=== PATIENT | female | born 1940 | race Caucasian/White ===

== ENCOUNTER 2016-09-29 07:33 | Day surgery (SDC) | payer MEDICARE ==
[2016-05-14 10:31] VITALS: BMI 30.4
[2016-09-29] MEDS ORDERED: Lactated Ringer's 500 ML IV ONE (08:04)
[2016-09-29] MEDS ORDERED: Propofol 10 mg/ml Inj (20 ML) ONE (09:24)
[2016-09-29 09:59] VITALS: TEMP 97
[2016-09-29 10:17] VITALS: BP 135/70; PULSE 57; RESP 10; O2SAT 99
== END 2016-09-29 10:20 | disposition home or self-care (01) ==
LOC: H.ENDO 07:33
PROVIDERS: ATTEND Internal Medicine Gastroenterology
DX: Z12.11 Encounter for screening for malignant neoplasm of colon (principal); I10 Essential (primary) hypertension; K57.30 Diverticulosis of large intestine without perforation or abscess without bleeding; K64.8 Other hemorrhoids; K27.7 Chronic peptic ulcer, site unspecified, without hemorrhage or perforation; K30 Functional dyspepsia; K44.9 Diaphragmatic hernia without obstruction or gangrene; K31.9 Disease of stomach and duodenum, unspecified
CPT/HCPCS: 43239; 88305; G0121; J2001; J2704; J7120

== ENCOUNTER 2017-03-18 10:41 | Emergency (ER) | payer MEDICARE, OTHER ==
[2017-03-18 10:50] VITALS: BMI 30.2
[2017-03-18 10:51] VITALS: TEMP 97.2
--- NOTE | 2017-03-18 12:28 | ED PDOC ---
HPI: General Adult Time Seen by Provider: 03/18/17 11:31 Chief Complaint (Nursing): Pain, Chronic History Per: Patient, Family (Mary Jo) Additional Complaint(s): Pt. states for the past 2 weeks she's had L sided temporal headache radiating to the R side associated with intermittent nausea. Headache is gradual in onset and atraumatic. Further states that headache is associated with nausea but no vomiting. Also reports that she's had epigastric abdominal pain associated with postprandial nausea that has been ongoing for 6 months. Pt. has been evaluated by her PMD for this abdominal pain and has had US done which was normal. Also reports having diffuse joint pain which she attributes to her arthritis which she's had intermittent for several years. Denies trauma, fever, chest pain, SOB , hemoptysis, vomiting, hematemesis, diarrhea, cough, congestion, numbness, weakness. Last BM was today and was normal. Past Medical History Reviewed: Historical Data, Nursing Documentation, Vital Signs Vital Signs: Last Vital Signs Temp 97.2 F L 03/18/17 10:50 Pulse 71 03/18/17 10:50 Resp 20 03/18/17 10:50 BP 175/86 H 03/18/17 10:50 Pulse Ox 98 03/18/17 12:30 - Medical History PMH: Arthritis, Back Problems, HTN - Surgical History Surgical History: Cholecystectomy (>15 years ago) - Family History Family History: States: No Known Family Hx - Immunization History Hx Tetanus Toxoid Vaccination: Yes Hx Influenza Vaccination: No Hx Pneumococcal Vaccination: Yes - Home Medications Home Medications: Ambulatory Orders Medication Instructions Recorded Diazepam [Valium] 2 mg PO TID #21 tab 01/31/15 Diovan Hct 12.5 mg-160 mg 1 tab PO DAILY 01/31/15 Prednisone 10 mg PO BID #10 tab 01/31/15 traMADol/Acetaminophen [Ultracet 1 tab PO Q8 PRN #20 tab 01/31/15 325 MG-37.5 MG] Acetaminophen [Tylenol] 325 mg PO Q6 PRN #30 tab 01/21/16 Naproxen [Naprosyn] 500 mg PO BID #20 tab 01/21/16 Nitrofurantoin Macrocrystals 1 cap PO BID #14 cap 10/08/16 [Macrobid] Prednisone [Deltasone] 40 mg PO DAILY #6 tablet 10/08/16 traMADol [Ultram] 50 mg PO TID #7 tab 10/08/16 Famotidine [Pepcid] 20 mg PO DAILY PRN #15 tab 03/18/17 Metoclopramide [Reglan] 10 mg PO Q8 PRN #15 tab 03/18/17 - Allergies Allergies/Adverse Reactions: Allergies Allergy/AdvReac Type Severity Reaction Status Date / Time No Known Allergies Allergy Verified 10/08/16 13:07 Review of Systems ROS Statement: Except As Marked, All Systems Reviewed And Found Negative Gastrointestinal: Positive for: Nausea, Abdominal Pain Neurological: Positive for: Headache Physical Exam - Physical Exam Appears: Positive for: Well, Non-toxic, No Acute Distress Head Exam: Positive for: ATRAUMATIC, NORMAL INSPECTION, NORMOCEPHALIC Skin: Positive for: Normal Color, Warm. Negative for: Rash Eye Exam: Positive for: EOMI, Normal appearance, PERRL ENT: Positive for: Normal ENT Inspection. Negative for: Pharyngeal Erythema, Tonsillar Exudate, Tonsillar Swelling Neck: Positive for: Normal, Painless ROM Cardiovascular/Chest: Positive for: Regular Rate, Rhythm Respiratory: Positive for: CNT, Normal Breath Sounds Gastrointestinal/Abdominal: Positive for: Normal Exam, Bowel Sounds, Soft. Negative for: Tenderness Back: Positive for: Normal Inspection Extremity: Positive for: Normal ROM Neurologic/Psych: Positive for: Alert - Laboratory Results Result Diagrams: 03/18/17 12:54 03/18/17 12:54 - ECG ECG: Positive for: Interpreted By Me ECG Rhythm: Negative for: ST/T Changes O2 Sat by Pulse Oximetry: 98 - Progress ED Course And Treament: Labs ordered. EKG ordered. Abd US ordered. CT head w/o contrast ordered. IV hydration, pepcid 20mg IV, reglan 10mg IV ordered. 1428 Abd US: Echogenic liver may be seen in setting of hepatic parenchymal disease or fatty infiltration. Mildly dilated common bile duct in the setting of cholecystectomy. CT head w/o contrast: Generalized atrophy. Nonspecific white matter changes. On re-evaluation, pt. in no distress. Reports good relief of abdominal pain and headache. States all symptoms have resolved. Abd US results d/w Dr. Britt and states no further imaging is needed since cholecystectomy is >15 years ago. Disposition - Clinical Impression Clinical Impression: Dyspepsia, Headache - Patient ED Disposition Is Patient to be Admitted: No - Disposition Referrals: [facility] [Outside] Disposition: Routine/Home Disposition Time: 14:28 Condition: IMPROVED Prescriptions: Famotidine [Pepcid] 20 mg PO DAILY PRN #15 tab PRN Reason: abdominal pain Metoclopramide [Reglan] 10 mg PO Q8 PRN #15 tab PRN Reason: headache or nausea Instructions: Gastritis (ED), Acute Headache (ED) Forms: [employer] (Macedonian) Print Language: INDIAN
[2017-03-18] MEDS ORDERED: Sodium Chloride 0.9% 1,000 ML IV SCH (12:30)
[2017-03-18 12:58] LABS: BASO # 0.1 K/uL (0.0-0.2); BASO % 1.4 % (0.0-2.0); EOS # 0.1 K/uL (0.0-0.7); HEMATOCRIT 44.3 % (34.0-47.0); LYMPH # 1.3 K/uL (1.0-4.3); LYMPH % 21.7 % (20.0-40.0); MEAN CELL VOLUME 91.2 fl (81.0-99.0); MEAN CORPUSCULAR HEMOGLOBIN 30.1 pg (27.0-31.0); MEAN PLATELET VOLUME 8.7 fl (7.2-11.7); MONO # 0.5 K/uL (0.0-0.8); MONO % 9.1 % (0.0-10.0); NEUT # 3.8 K/uL (1.8-7.0); NEUT % 65.8 % (50.0-75.0); NRBC % 0.1 % (0.0-0.0); RED CELL DISTRIBUTION WIDTH 14.2 % (11.5-14.5); WHITE BLOOD COUNT 5.8 K/uL (4.8-10.8)
[2017-03-18 13:00] LABS: RBC URINE 1 /hpf (0-3); URINE BACTERIA RARE (<OCC); URINE BILIRUBIN NEGATIVE (NEGATIVE); URINE BLOOD NEGATIVE (NEGATIVE); URINE COLOR YELLOW (YELLOW); URINE GLUCOSE (UA) NEG (Normal); URINE KETONE NEGATIVE (NEGATIVE); URINE LEUKOCYTE ESTERASE TRACE Leu/uL (Negative); URINE PROTEIN NEGATIVE (NEGATIVE); URINE UROBILINOGEN 0.2-1.0 mg/dL (0.2-1.0); WBC URINE 1 /hpf (0-5)
[2017-03-18 13:11] LABS: ALB/GLOB RATIO 1.3 (1.0-2.1); ALKALINE PHOSPHATASE 71 U/L (38-126); ALT/SGPT 40 U/L (9-52); AST/SGOT 34 U/L (14-36); BILIRUBIN,TOTAL 0.7 mg/dl (0.2-1.3); BLOOD UREA NITROGEN 21 mg/dl (7-17); CALCIUM 9.5 mg/dL (8.4-10.2); CARBON DIOXIDE 31 mmol/L (22-30); CHLORIDE 106 mmol/L (98-107); GFR AFRICAN-AMERICAN > 60; GLUCOSE,RANDOM 90 mg/dL (65-105); LIPASE 78 U/L (23-300); SODIUM 144 mmol/l (132-148); TOTAL PROTEIN 7.4 G/DL (6.3-8.2)
--- NOTE | 2017-03-18 14:19 | US ---
HISTORY: epigastric pain COMPARISON: None available. TECHNIQUE: Sonographic evaluation of the abdomen. FINDINGS: LIVER: Measures 14.8 cm in sagittal dimension. Echogenic liver may be seen in setting of hepatic parenchymal disease or fatty infiltration. No focal hepatic mass identified. The main portal vein appears patent with normal directional flow. No intrahepatic bile duct dilatation. GALLBLADDER: Cholecystectomy. COMMON BILE DUCT: Measures 8 mm. PANCREAS: Not well visualized. RIGHT KIDNEY: Measures 10.8 x 5.2 x 4.5cm. No obstructing calculus or hydronephrosis identified. LEFT KIDNEY: Measures 10.8 x 5.2 x 4.9cm. No obstructing calculus or hydronephrosis identified. SPLEEN: Measures approximately 10.2 x 3.6 x 5.0 cm. AORTA: Limited views appear unremarkable. IVC: Limited views appear unremarkable. OTHER FINDINGS: None. IMPRESSION: Echogenic liver may be seen in setting of hepatic parenchymal disease or fatty infiltration. Mildly dilated common bile duct in the setting of cholecystectomy.
--- NOTE | 2017-03-18 14:29 | CT ---
PROCEDURE: CT HEAD WITHOUT CONTRAST. HISTORY: headache COMPARISON: None available. TECHNIQUE: Axial computed tomography images were obtained through the head/brain without intravenous contrast. Radiation dose: Total exam DLP = 832.69 mGy-cm. This CT exam was performed using one or more of the following dose reduction techniques: Automated exposure control, adjustment of the mA and/or kV according to patient size, and/or use of iterative reconstruction technique. FINDINGS: HEMORRHAGE: No intracranial hemorrhage. BRAIN: Diffuse atrophy with prominence of the ventricles and sulci noted. No mass effect or edema. Dense intracranial atherosclerosis. Mild scattered white matter hypodensities, which are nonspecific, but often seen with chronic microvascular ischemic disease. Please note that MRI with diffusion imaging is more sensitive in the detection of acute ischemic event. VENTRICLES: No hydrocephalus. CALVARIUM: Unremarkable. PARANASAL SINUSES: Unremarkable as visualized. No significant inflammatory changes. MASTOID AIR CELLS: Unremarkable as visualized. No inflammatory changes. OTHER FINDINGS: Prosthesis noted, left globe. IMPRESSION: Generalized atrophy. Nonspecific white matter changes. Additional incidental findings as above
[2017-03-18 15:23] VITALS: BP 151/92; PULSE 67; RESP 18; O2SAT 100
--- NOTE | 2017-03-19 12:10 | CARD ---
APPROVED REPORT EKG Measurement Heart [id number] <Conclusion> Normal sinus rhythm Normal ECG
== END 2017-03-18 15:20 | disposition home or self-care (01) ==
LOC: H.ER 10:41
DX: R51 Headache (principal); K30 Functional dyspepsia; I10 Essential (primary) hypertension; K83.8 Other specified diseases of biliary tract; M19.90 Unspecified osteoarthritis, unspecified site; Z90.49 Acquired absence of other specified parts of digestive tract
CPT/HCPCS: 70450; 76700; 80053; 81003; 83690; 84484; 85025; 93005; 96361; 96374; 96375; 99285; J2765; J7040

== ENCOUNTER 2018-04-25 11:57 | Emergency (ER) | payer MEDICARE, OTHER ==
[2018-04-25 11:58] VITALS: BMI 30.2
[2018-04-25 12:42] VITALS: RESP 18; O2SAT 99
--- NOTE | 2018-04-25 14:19 | ED PDOC ---
HPI: CCC, URI, Sore Throat Time Seen by Provider: 04/25/18 13:45 Chief Complaint (Nursing): Flu-like Symptoms Chief Complaint (Provider): URI type symptoms History Per: Patient History/Exam Limitations: no limitations Onset/Duration Of Symptoms: Other (x1 week) Associated Symptoms: Fever, Cough, Nasal Congestion Additional Complaint(s): 77 year old female presents to the ED with 1 week history of URI type symptoms including nasal congestion and cough. Patient reports a tactile fever but no documented fever. Patient otherwise feels well and has good appetite. Denies abdominal pain, chest pain, or shortness of breath. Patient is visiting from [place], no PMD local. PMD: none locally Past Medical History Reviewed: Historical Data, Nursing Documentation, Vital Signs Vital Signs: Last Vital Signs Temp 98.0 F 04/25/18 12:38 Pulse 76 04/25/18 12:38 Resp 18 04/25/18 12:38 BP 163/95 H 04/25/18 12:38 Pulse Ox 99 04/25/18 12:38 - Medical History PMH: Arthritis, Back Problems, HTN - Surgical History Surgical History: Cholecystectomy (>15 years ago) - Family History Family History: States: Unknown Family Hx - Immunization History Hx Tetanus Toxoid Vaccination: Yes Hx Influenza Vaccination: No Hx Pneumococcal Vaccination: Yes - Home Medications Home Medications: Ambulatory Orders Medication Instructions Recorded Diazepam [Valium] 2 mg PO TID #21 tab 01/31/15 Diovan Hct 12.5 mg-160 mg 1 tab PO DAILY 01/31/15 RX: Prednisone 10 mg PO BID #10 tab 01/31/15 traMADol/Acetaminophen [Ultracet 1 tab PO Q8 PRN #20 tab 01/31/15 325 MG-37.5 MG] Acetaminophen [Tylenol] 325 mg PO Q6 PRN #30 tab 01/21/16 Naproxen [Naprosyn] 500 mg PO BID #20 tab 01/21/16 Nitrofurantoin Macrocrystals 1 cap PO BID #14 cap 10/08/16 [Macrobid] RX: Prednisone [Deltasone] 40 mg PO DAILY #6 tablet 10/08/16 RX: traMADol [Ultram] 50 mg PO TID #7 tab 10/08/16 Famotidine [Pepcid] 20 mg PO DAILY PRN #15 tab 03/18/17 Metoclopramide [Reglan] 10 mg PO Q8 PRN #15 tab 03/18/17 Azithromycin [Zithromax] 250 mg PO DAILY #4 tab 04/25/18 - Allergies Allergies/Adverse Reactions: Allergies Allergy/AdvReac Type Severity Reaction Status Date / Time No Known Allergies Allergy Verified 10/08/16 13:07 Review of Systems ROS Statement: Except As Marked, All Systems Reviewed And Found Negative Constitutional: Positive for: Fever ENT: Positive for: Nose Congestion Cardiovascular: Negative for: Chest Pain Respiratory: Positive for: Cough. Negative for: Shortness of Breath Gastrointestinal: Negative for: Abdominal Pain Physical Exam - Reviewed Nursing Documentation Reviewed: Yes Vital Signs Reviewed: Yes - Physical Exam Appears: Positive for: Non-toxic, No Acute Distress Head Exam: Positive for: ATRAUMATIC, NORMOCEPHALIC Skin: Positive for: Normal Color, Warm, Dry Eye Exam: Positive for: Normal appearance ENT: Positive for: Normal ENT Inspection, Pharynx Is (normal) Neck: Positive for: Normal, Painless ROM Cardiovascular/Chest: Positive for: Regular Rate, Rhythm Respiratory: Positive for: Normal Breath Sounds. Negative for: Wheezing, Respiratory Distress Gastrointestinal/Abdominal: Positive for: Normal Exam, Soft. Negative for: Tenderness Extremity: Positive for: Normal ROM Neurologic/Psych: Positive for: Alert, Oriented. Negative for: Motor/Sensory Deficits - ECG O2 Sat by Pulse Oximetry: 99 (RA) Pulse Ox Interpretation: Normal Medical Decision Making Medical Decision Making: Initial Plan: --Chest X-ray --Influenza A B stat Pt. well-appearing, lungs clear, pulse ox 99% on RA, afebrile. Pt./daughter did not want to wait for flu test and with a week of symptoms, she is outside tamiflu window. Will give rx zithro. Scribe Attestation: Documented by Mohan Shin acting as a scribe for Stephanie BAH. Provider Scribe Attestation: All medical record entries made by the Scribe were at my direction and personally dictated by me. I have reviewed the chart and agree that the record accurately reflects my personal performance of the history, physical exam, me dical decision making, and the department course for this patient. I have also personally directed, reviewed, and agree with the discharge instructions and disposition. Disposition - Clinical Impression Clinical Impression: Influenza-like symptoms, Bronchitis - Patient ED Disposition Is Patient to be Admitted: No Counseled Patient/Family Regarding: Studies Performed, Diagnosis, Need For Followup, Rx Given - Disposition Referrals: [facility] [Outside] Disposition: Routine/Home Disposition Time: 15:33 Condition: STABLE Prescriptions: Azithromycin [Zithromax] 250 mg PO DAILY #4 tab Instructions: Acute Bronchitis Forms: [employer] (Setswana) Print Language: ESTONIAN
--- NOTE | 2018-04-25 15:41 | RAD ---
Date of service: 04/25/2018 HISTORY: Cough COMPARISON: No prior. TECHNIQUE: Chest PA and lateral FINDINGS: LINES AND TUBES: None. LUNG AND PLEURA: The lungs are well inflated and clear. No pleural effusion or pneumothorax. HEART AND MEDIASTINUM: The heart is not enlarged. No aortic atherosclerotic calcification present. The hilar and mediastinal contours are within normal limits. SKELETAL STRUCTURES: The bony structures are within normal limits for the patient's age. VISUALIZED UPPER ABDOMEN: Normal. OTHER FINDINGS: None. IMPRESSION: No active pulmonary disease.
[2018-04-25 16:03] VITALS: BP 149/72; PULSE 74; TEMP 98.3
== END 2018-04-25 16:01 | disposition home or self-care (01) ==
LOC: H.ER 11:57
DX: J11.1 Influenza due to unidentified influenza virus with other respiratory manifestations (principal); J40 Bronchitis, not specified as acute or chronic; I10 Essential (primary) hypertension